=== PATIENT | male | born 1985 | race Caucasian/White ===

== ENCOUNTER 2020-09-29 10:16 | Emergency (ER) | payer SELFPAY ==
[2020-09-29 10:25] VITALS: BP 136/93; PULSE 94; RESP 18; TEMP 36.4; O2SAT 99; BMI 21.6
--- NOTE | 2020-09-29 12:08 | ED_ITS ---
HPI - Animal Bite General: Chief Complaint: Animal Bite Stated Complaint: spider bite Time Seen by Provider: 09/29/20 10:30 History of Present Illness: HPI narrative: Patient states he has some areas right knee thought possibly could have started as spider bites that and that been like little pimples and he squeezed them and now he has some swelling that area. Patient also said he has had gonorrhea contact here recently. He states he has no symptoms but would like to be tested. complaint: other (Areas of concern on right knee times many days) Onset (ago): day(s) Associated symptoms: Deny chills, fever(s) or headache(s) Review of Systems Const: Denies: fever(s), chills or body aches Eyes: Denies: change in vision or blurry vision ENMT: Denies: throat pain or nasal congestion Card: Denies: chest pain or dyspnea on exertion Resp: Denies: dyspnea, productive cough or non-productive cough GI: Denies: abdominal pain, nausea or vomiting : Reports: other (Patient said he has had a positive gonorrhea contact without symptoms); Denies: difficulty urinating Musc: Denies: extremity pain Skin/Breast: Reports: erythema, skin tenderness and skin swelling (Right knee); Denies: rash Neuro: Denies: headache(s) Psych: Denies: anxiety or depression Bobo/Lymph: Denies: easy bruising Physical Exam Const: COMMON NORMALS: no acute distress Psych: COMMON NORMALS: mental status grossly normal Skin: OTHER: Right knee has 3 pimple-like areas papular slight erythema mild swelling tenderness no active drainage Course Vital Signs: Vital signs: Vital Signs Temperature 97.5 F L 09/29/20 10:25 Pulse Rate 94 09/29/20 10:25 Respiratory Rate 18 09/29/20 10:25 Blood Pressure 136/93 09/29/20 10:25 Pulse Oximetry 99 09/29/20 10:25 Discharge Plan Discharge Patient Disposition: Home Clinical Impression: Gonorrhea contact Cellulitis Qualifiers: Site of cellulitis: extremity Site of cellulitis of extremity: lower extremity Laterality: right Qualified Code(s): L03.115 - Cellulitis of right lower limb Condition: Stable Prescriptions: New Bactrim DS 800-160 mg tablet 1 tab PO BID 7 Days Qty: 14 RF: 0 Discharge Orders: Discharge ED (Routine); Ordered 09/29/20 Ordered By: Gil Denney Discharge Diet: Usual diet Discharge Activity: Resume usual activity Patient Instructions: Sexually Transmitted Diseases (ED), Cellulitis (ED) Activity Restrictions/Additional Instructions: Follow-up with medical provider as directed. Take medications as prescribed. Return to the ER or your medical provider if condition worsens. Please read and understand discharge instructions. If any questions ask please. Call later date to get lab results Coding Level of Care Code ED [employer] for Loly Wilkerson
[2020-09-29 12:33] VITALS: BP 118/71; PULSE 75; RESP 18; TEMP 36.7; O2SAT 100
[2020-09-29] MEDS: azithromycin 250 mg Tablet 1000 MG PO (12:37)
--- NOTE | 2020-09-30 17:35 | PC.NURSE ---
Made contact with pt and informed him of his positive Chalmydia result. An Rx was called into [facility] in spring for Doxycycline 100mg 1 tab po BID x 14 days.
== END 2020-09-29 13:34 | disposition home or self-care (01) ==
PROVIDERS: Emergency Provider Nurse Practitioner Family
DX: L03.115 Cellulitis of right lower limb (principal); Z20.2 Contact with and (suspected) exposure to infections with a predominantly sexual mode of transmission
CPT/HCPCS: 87491; 87591; 96372; 99283; J0696; Q0144